=== PATIENT | male | born 1970 | race Caucasian/White ===

== ENCOUNTER 2017-06-29 15:45 | Emergency (ER) | payer OTHER ==
[2017-06-29] MEDS ORDERED: Cephalexin 500 MG Cap PO ONE (17:06)
[2017-06-29] MEDS ORDERED: Bacitracin Oint 1 GM U/D Packet TOP ONE (17:06)
[2017-06-29] MEDS ORDERED: Lidocaine 1% 30 ML SDV INJECT ONE (17:06)
--- NOTE | 2017-06-29 17:52 | EDM.PDOC ---
Scribed by Pam Pennington 06/29/17 [id number] for Handy Collier MD ED HPI GENERAL MEDICAL PROBLEM - General Chief Complaint: Laceration Stated Complaint: HAND CUT [id number] Time Seen by Provider: 06/29/17 17:01 Source of Information: Reports: Patient, RN, RN Notes Reviewed History Limitations: Reports: No Limitations - History of Present Illness INITIAL COMMENTS - FREE TEXT/NARRATIVE: Patient presents to ER with complaint of laceration to left forearm sustained when he fell into an old barbeque grill jaime. No other injuries. Tetanus vaccine is up to date. Onset: Today Location: Reports: Upper Extremity, Left Quality: Reports: Ache Severity: Moderate Improves with: Reports: None Worsens with: Reports: None Associated Symptoms: Reports: No Other Symptoms Left Arm Pain Score (Numeric/FACES): 3 - Related Data Allergies Allergy/AdvReac Type Severity Reaction Status Date / Time No Known Allergies Allergy Verified 06/29/17 16:41 Home Meds: Home Meds Rivaroxaban [Xarelto] 10 mg PO DAILY 06/29/17 [History] Past Medical History Respiratory History: Reports: PE Gastrointestinal History: Reports: Other (See Below) Other Gastrointestinal History: ulcerative colitis - Past Surgical History GI Surgical History: Reports: Hernia Repair/Other Male Surgical History: Reports: Vasectomy Social & Family History - Tobacco Use Smoking Status *Q: Never Smoker Second Hand Smoke Exposure: No - Caffeine Use Caffeine Use: Reports: Coffee, Soda - Recreational Drug Use Recreational Drug Use: No ED ROS GENERAL - Review of Systems Review Of Systems: ROS reveals no pertinent complaints other than HPI. ED EXAM, SKIN/RASH Exam: See Below Exam Limited By: No Limitations General Appearance: Alert, WD/WN, No Apparent Distress Head: Atraumatic, Normocephalic Neck: Normal Inspection, Supple, Non-Tender, Full Range of Motion Respiratory/Chest: No Respiratory Distress Extremities: Normal Range of Motion, Normal Capillary Refill, Other (2.5cm irregular laceration to the distal left ulnar forearm.). No: Joint Swelling Skin: Warm, Dry, Intact, Normal Color, No Rash ED SKIN PROCEDURES - Laceration/Wound Repair Left Medial Distal Arm Lac/Wound length In cm: 2.5 Appearance: Subcutaneous, Irregular, Clean Distal NVT: Neuro & Vascular Intact, No Tendon Injury Anesthetic Type: Local Local Anesthesia - Lidocaine (Xylocaine): 1% Plain Local Anesthetic Volume: Other (10cc) Skin Prep: Chlorhexidine (Hibiciens), Saline Saline Irrigation (cc's): 500 Exploration/Debridement/Repair: Wound Explored, In a Bloodless Field, Explored to Base, Minimal Debridement, Minimally Undermined Closed with: Sutures Suture Size: 3-0 # of Sutures: 8 Suture Type: Nylon, Interrupted Drain Placement: No Sterile Dressing Applied: Nurse Tetanus Status Addressed: Yes Complications: No Course - Vital Signs Last Recorded V/S: Last Vital Signs Temp 37.2 C 06/29/17 16:36 Pulse 96 06/29/17 16:36 Resp 16 06/29/17 16:36 BP 117/85 06/29/17 16:36 Pulse Ox 100 06/29/17 16:36 - Orders/Labs/Meds Meds: Medications Discontinued Medications Generic Name Dose Route Start Last Admin Trade Name Philippeq PRN Reason Stop Dose Admin Bacitracin 1 dose 06/29/17 17:06 06/29/17 17:29 Bacitracin Oint 1 Gm TOP 06/29/17 17:07 1 dose ONETIME ONE Administration Cephalexin 500 mg 06/29/17 17:06 06/29/17 17:22 Keflex PO 06/29/17 17:07 500 mg ONETIME ONE Administration Lidocaine HCl 30 ml 06/29/17 17:06 06/29/17 17:29 Xylocaine-Mpf 1% INJECT 06/29/17 17:07 30 ml ONETIME ONE Administration Departure - Departure Time of Disposition: 17:48 Disposition: Home, Self-Care 01 Condition: Good Clinical Impression: Laceration of left forearm Qualifiers: Encounter type: initial encounter Qualified Code(s): S51.812A - Laceration without foreign body of left forearm, initial encounter - Discharge Information Instructions: Laceration Care, Adult, [id number] Forms: ED Department Discharge Additional Instructions: Follow up in clinic in 7 to 10 days for suture removal. Return to ER if any signs of infection develop. I have read and agree with the documentation that has been completed regarding this visit. By signing this record, I attest that the documentation was completed in my physical presence and is an accurate record of the encounter.
== END 2017-06-29 18:01 | disposition home or self-care (01) ==
LOC: DL.ED 15:45
DX: S51.812A Laceration without foreign body of left forearm, initial encounter (principal); W01.198A Fall on same level from slipping, tripping and stumbling with subsequent striking against other object, initial encounter; Z79.899 Other long term (current) drug therapy
CPT/HCPCS: 12001; 99282; A9270; 12011

== ENCOUNTER 2020-03-11 02:26 | Emergency (ER) | payer OTHER ==
--- NOTE | 2020-03-11 02:43 | EDM.PDOC ---
ED HPI GENERAL MEDICAL PROBLEM - General Stated Complaint: BROKEN BIG TOE Time Seen by Provider: 03/11/20 02:28 Source of Information: Reports: Patient History Limitations: Reports: No Limitations - History of Present Illness INITIAL COMMENTS - FREE TEXT/NARRATIVE: ED with c/o pain to right great toe, Getting up to bathroom, leg asleep and stubbed toe against wall, approximately 1:30 tonight. [place] pop. Nail bleeding Right Toe-[place] Pain Score (Numeric/FACES): 2 - Related Data Allergies Allergy/AdvReac Type Severity Reaction Status Date / Time No Known Allergies Allergy Verified 03/11/20 02:35 Home Meds: Home Meds Rivaroxaban [Xarelto] 10 mg PO DAILY 06/29/17 [History] Past Medical History Respiratory History: Reports: PE Gastrointestinal History: Reports: Other (See Below) Other Gastrointestinal History: ulcerative colitis - Past Surgical History GI Surgical History: Reports: Hernia Repair/Other Male Surgical History: Reports: Vasectomy Social & Family History - Caffeine Use Caffeine Use: Reports: Coffee, Soda Review of Systems - Review of Systems Review Of Systems: Comprehensive ROS is negative, except as noted in HPI. ED EXAM, GENERAL - Physical Exam Exam: See Below Exam Limited By: No Limitations General Appearance: Alert, Moderate Distress Eye Exam: Bilateral Eye: EOMI Ears: Normal External Exam, Hearing Grossly Normal Nose: Normal Inspection Throat/Mouth: Normal Inspection Head: Atraumatic, Normocephalic Neck: Full Range of Motion Respiratory/Chest: No Respiratory Distress, Normal Breath Sounds Cardiovascular: Normal Peripheral Pulses, Regular Rate, Rhythm Extremities: Other (mild swelling right great toe, no gross deformity subungal hematoma) Neurological: Alert, Oriented, Normal Cognition, No Motor/Sensory Deficits Psychiatric: Normal Affect ED TRAUMA EXTREMITY PROCEDURES - Splinting Right Lower Extremity Pre-Procedure NV Status: Normal Post-Procedure NV Status: Normal Splint Material: Boot Orthotic Applied & Form Fitted By: Nurse Provider Post-Splint Application NV Check: NV Status Normal Complications: No - Additional/Other Procedure(s) Other (Free Text) Procedure(s): subungual hematoma reight great toe, , cleansed with betadine, drainage with fine point cautery lower medial nail. Toerated well, pressure applied, bandaide dressing Course - Vital Signs Last Recorded V/S: Last Vital Signs Temp 97.2 F 03/11/20 02:32 Pulse 82 03/11/20 02:32 Resp 17 03/11/20 02:32 BP 140/85 03/11/20 02:32 Pulse Ox 100 03/11/20 02:32 - Orders/Labs/Meds Orders: Active Orders 24 hr Category Date Time Status Toes Great Toe Rt T5 [CR] Urgent Exams 03/11/20 02:30 Taken Departure - Departure Time of Disposition: 03:02 Disposition: Home, Self-Care 01 Clinical Impression: "Subungual hematoma, foot " Toe fracture, right Qualifiers: Encounter type: initial encounter Toe: great toe Fracture type: closed Phalanx: proximal Fracture alignment: nondisplaced Qualified Code(s): S92.414A - Nondisplaced fracture of proximal phalanx of right great toe, initial encounter for closed fracture - Discharge Information *PRESCRIPTION DRUG MONITORING PROGRAM REVIEWED*: No *COPY OF PRESCRIPTION DRUG MONITORING REPORT IN PATIENT TRAVIS: No Instructions: Toe Fracture, [id number] Additional Instructions: Follow up with podiatry or ortho walking boot when up keep elevated, ice tyleol 650mg every 4 hours as needed for mild discomfort tramadol 50mg one every 6 hours as needed for severe discomfort Sepsis Event Note (ED) - Focused Exam Vital Signs: Vital Signs Temp Pulse Resp BP Pulse Ox 03/11/20 02:32 97.2 F 82 17 140/85 100 - My Orders Last 24 Hours: My Active Orders 03/11/20 02:30 Toes Great Toe Rt T5 [CR] Urgent - Assessment/Plan Last 24 Hours: My Active Orders 03/11/20 02:30 Toes Great Toe Rt T5 [CR] Urgent
--- NOTE | 2020-03-11 03:21 | CR ---
PROCEDURE INFORMATION: Exam: XR Right Toe(s) Exam date and time: 03/11/2020 2:40 AM Age: 49 years old Clinical indication: Other: Pain big toe; Additional info: Stubbed toe on wall TECHNIQUE: Imaging protocol: XR Right toes. Views: Minimum 2 views. COMPARISON: No relevant prior studies available. FINDINGS: Bones/joints: Acute fracture at the medial base of the proximal phalanx of the 1st digit at the 1st MTP joint. Soft tissues: There is soft tissue swelling medially overlying the 1st MTP joint.. IMPRESSION: Acute fracture at the medial base proximal phalanx 1st digit at the 1st MTP joint with overlying soft tissue swelling.
== END 2020-03-11 03:30 | disposition home or self-care (01) ==
LOC: DL.ED 02:26
DX: S92.414A Nondisplaced fracture of proximal phalanx of right great toe, initial encounter for closed fracture (principal); S90.211A Contusion of right great toe with damage to nail, initial encounter; Z86.711 Personal history of pulmonary embolism; Z79.01 Long term (current) use of anticoagulants; W22.8XXA Striking against or struck by other objects, initial encounter
CPT/HCPCS: 11740; 73660-T5; 99283; 99283-25

== ENCOUNTER 2020-11-21 14:50 | Emergency (ER) | payer BC, OTHER ==
[2020-11-21] MEDS ORDERED: Sodium Chloride 0.9% 10 ML Syringe FLUSH PRN (15:36)
--- NOTE | 2020-11-21 15:44 | EDM.PDOC ---
<True Herring M - Last Filed: 11/21/20 17:27> ED HPI GENERAL MEDICAL PROBLEM - General Chief Complaint: Flank Pain Stated Complaint: kidney stones Time Seen by Provider: 11/21/20 15:30 - Related Data Allergies Allergy/AdvReac Type Severity Reaction Status Date / Time No Known Allergies Allergy Verified 11/21/20 15:07 Home Meds: Home Meds Rivaroxaban [Xarelto] 10 mg PO DAILY 06/29/17 [History] Course - Radiology Interpretation Free Text/Narrative:: [facility] Final Radiology Report Call: [phone] assistance Online chat: [email or web address] Name: LALA MCFADDEN Age: 50Years M Date: 11/21/2020 SSN: -- : [id number] Study: CT ABDOMEN PELVIS WO CONT Requesting Physician: Deniz Lomeli Images: [id number] Addl Studies: Provided Clinical History: back pn, difficulty urinating, Right and Left flank pain with dysuria Contrast: Without Contrast Medium: Contrast Amount: Contrast Method: Page 1 of 2 PROCEDURE INFORMATION: Exam: CT Abdomen And Pelvis Without Contrast Exam date and time: 11/21/2020 4:20 PM Age: 50 years old Clinical indication: Abdominal pain; Other: Bilateral flank pain; Prior surgery; Surgery date: <1 month; Surgery type: Colectomy 10/25/20; Additional info: Back pn, difficulty urinating, right and left flank pain with dysuria TECHNIQUE: Imaging protocol: Computed tomography of the abdomen and pelvis without contrast. Radiation optimization: All CT scans at this facility use at least one of these dose optimization techniques: automated exposure control; mA and/or kV adjustment per patient size (includes targeted exams where dose is matched to clinical indication); or iterative r econstruction. COMPARISON: No relevant prior studies available. FINDINGS: Liver: Normal. No mass. Gallbladder and bile ducts: Normal. No calcified stones. No ductal dilation. Pancreas: Normal. No ductal dilation. Spleen: Normal. No splenomegaly. Adrenal glands: Normal. No mass. Kidneys and ureters: Punctate calculi in both kidneys. Kidneys are free of hydronephrosis. There is mild hydroureter in distal left ureter with 2 mm calculus in left UVJ region. Stomach and bowel: Bowel gas pattern nonobstructive with total colectomy noted. Diverting ileostomy right mid abdomen. There are prominent areas of fat stranding throughout the rectosigmoid stump remnant. No significant free fluid. No free intraperitoneal air. Appendix: No evidence of appendicitis. Intraperitoneal space: See "Stomach and bowel" finding. LALA MCFADDEN | Final Radiology Report CONFIDENTIALITY STATEMENT This report is intended only for use by the referring physician, and only in accordance with law. If you received this in error, call [phone]. Page 2 of 2 Vasculature: Unremarkable. No abdominal aortic aneurysm. Lymph nodes: Unremarkable. No enlarged lymph nodes. Urinary bladder: Unremarkable as visualized. Reproductive: Unremarkable as visualized. Bones/joints: Unremarkable. No acute fracture. Soft tissues: Unremarkable. IMPRESSION: 1. Bilateral nephrolithiasis with mild left hydroureter presumably due to 2 mm calculus in left UVJ region 2. Total colectomy changes. Nonspecific inflammatory changes versus scarring adjacent to site of distal colonic stump remnant. Thank you for allowing us to participate in the care of your patient. Dictated and Authenticated by: Dejuan Hinson MD 11/21/2020 5:23 PM Central Time ([place] & [place]) Departure - Departure Disposition: Home, Self-Care 01 Clinical Impression: Kidney stones - Discharge Information Instructions: Kidney Stones, [id number] Forms: ED Department Discharge Additional Instructions: RX: Flomax RX: Toradol Follow up with your primary care facility at the end of this week or early next week. If you pass a kidney stone collect it and take it to your provider for analysis. If any new symptoms or concerns develop contact your primary care facility or return to the ER. <Deniz Lomeli - Last Filed: 11/21/20 17:43> ED HPI GENERAL MEDICAL PROBLEM - General Source of Information: Reports: Patient History Limitations: Reports: No Limitations - History of Present Illness INITIAL COMMENTS - FREE TEXT/NARRATIVE: 50 y/o M c/o difficulty urinating for 2 -3 days. Pt states he has trouble starting a stream and some discomfort with urination. Denies blood in urine. also c/o associated L side pain lasting a few hours today. Pt states he has also had R lower back pn 3/10 sharp non radiating. No associated nausea,, fever, chills. Denies abd pn, cp, db, pelvic pn. Hx of ulcerative colitis and had his entire colon removed sept 2 at [facility]. Pt now has a ileostomy which has been functioning normally. Location: Reports: Back Severity: Mild Flank Pain Score (Numeric/FACES): 4 Past Medical History Respiratory History: Reports: PE Gastrointestinal History: Reports: Other (See Below) Other Gastrointestinal History: ulcerative colitis - Infectious Disease History Infectious Disease History: Reports: C-Difficile - Past Surgical History GI Surgical History: Reports: Hernia Repair/Other Male Surgical History: Reports: Vasectomy Social & Family History - Family History Family Medical History: No Pertinent Family History - Tobacco Use Tobacco Use Status *Q: Never Tobacco User - Caffeine Use Caffeine Use: Reports: Coffee, Energy Drinks - Recreational Drug Use Recreational Drug Use: No ED ROS GENERAL - Review of Systems Review Of Systems: Comprehensive ROS is negative, except as noted in HPI. ED EXAM, RENAL/ - Physical Exam Exam: See Below Exam Limited By: No Limitations General Appearance: Alert, No Apparent Distress Throat/Mouth: Normal Inspection, Normal Lips, Normal Teeth, Normal Gums, Normal Oropharynx, Normal Voice, No Airway Compromise Head: Atraumatic, Normocephalic Neck: Normal Inspection, Supple, Non-Tender, Full Range of Motion Respiratory/Chest: No Respiratory Distress, Lungs Clear, Normal Breath Sounds, No Accessory Muscle Use, Chest Non-Tender Cardiovascular: Normal Peripheral Pulses, Regular Rate, Rhythm, No Edema, No Gallop, No JVD, No Murmur, No Rub GI/Abdominal: Soft, Non-Tender (Male) Exam: Deferred Rectal (Males) Exam: Deferred Back Exam: CVA Tenderness (L), CVA Tenderness (R) Extremities: Normal Inspection, Normal Range of Motion, Non-Tender, Normal Capillary Refill, No Pedal Edema Neurological: Alert, Oriented, CN II-XII Intact, Normal Cognition, Normal Gait, Normal Reflexes, No Motor/Sensory Deficits Psychiatric: Normal Affect, Normal Mood Skin Exam: Warm, Dry, Intact Course - Vital Signs Last Recorded V/S: Last Vital Signs Temp 98.1 F 11/21/20 15:03 Pulse 108 H 11/21/20 15:03 Resp 20 11/21/20 15:03 BP 149/98 H 11/21/20 15:03 Pulse Ox 97 11/21/20 15:03 - Orders/Labs/Meds Orders: Active Orders 24 hr Category Date Time Status Peripheral IV Care [RC] . DIRECTED Care 11/21/20 15:37 Active Sodium Chloride 0.9% [Saline Flush] Med 11/21/20 15:36 Active 10 ml FLUSH ASDIRECTED PRN Peripheral IV Insertion Adult [OM.PC] Routine Oth 11/21/20 15:36 Ordered Medication Orders Sodium Chloride (Sodium Chloride 0.9% 10 Ml Syringe) 10 ml FLUSH ASDIRECTED PRN PRN Reason: Keep Vein Open Labs: Laboratory Tests 11/21/20 11/21/20 11/21/20 Range/Units 15:10 15:46 15:46 WBC 13.4 H (5.0-10.0) 10^3/uL RBC 4.25 L (4.6-6.2) 10^6/uL Hgb 11.2 L (14.0-18.0) g/dL Hct 37.4 L (40.0-54.0) % MCV 88.0 (80-100) fL MCH 26.4 L (27.0-34.0) pg MCHC 29.9 L (33.0-35.0) g/dL Plt Count 327 (150-450) 10^3/uL Neut % (Auto) 74.7 (42.2-75.2) % Lymph % (Auto) 15.9 L (20.5-50.1) % [place] % (Auto) 7.9 (2-8) % Eos % (Auto) 1.1 (1.0-3.0) % Baso % (Auto) 0.4 (0.0-1.0) % Sodium 141 (136-145) mmol/L Potassium 4.1 (3.5-5.1) mmol/L Chloride 105 (98-107) mmol/L Carbon Dioxide 29 (21-32) mmol/L Anion Gap 11.1 (7-13) mEq/L BUN 16 (7-18) mg/dL Creatinine 0.99 (0.70-1.30) mg/dL Est Cr Clr Drug Dosing 106.09 mL/min Estimated GFR (MDRD) > 60 BUN/Creatinine Ratio 16.2 (No establ ref range) Glucose 90 (70-99) mg/dL Lactic Acid (0.4-2.0) mmol/L Calcium 8.5 (8.5-10.1) mg/dL Magnesium 2.0 (1.8-2.4) mg/dL Total Bilirubin 0.4 (0.2-1.0) mg/dL AST 25 (15-37) U/L ALT 88 H (16-63) U/L Alkaline Phosphatase 88 (46-116) U/L C-Reactive Protein 1.2 H (0.0-0.9) mg/dL Total Protein 6.4 (6.4-8.2) g/dL Albumin 3.2 L (3.4-5.0) g/dL Globulin 3.2 Albumin/Globulin Ratio 1.00 Amylase 76 (25-115) U/L Lipase 363 (73-393) U/L Urine Color Yellow (YELLOW) Urine Appearance Slightly cloudy (CLEAR) Urine pH 5.5 (5.0-9.0) Ur Specific [place] >= 1.030 (1.005-1.030) Urine Protein Negative (NEGATIVE) Urine Glucose (UA) Negative (NEGATIVE) Urine Ketones Negative (NEGATIVE) Urine Occult Blood Large H (NEGATIVE) Urine Nitrite Negative (NEGATIVE) Urine Bilirubin Negative (NEGATIVE) Urine Urobilinogen 0.2 (0.2-1.0) mg/dL Ur Leukocyte Esterase Negative (NEGATIVE) Urine RBC >100 H (0-5) /HPF Urine WBC 0-5 (0-5/HPF) /HPF Ur Epithelial Cells Rare (NOT SEEN) /HPF Amorphous Sediment Rare (NOT SEEN) /HPF Urine Bacteria Rare (0-FEW/HPF) /HPF Urine Mucus Few H (NOT SEEN) /LPF 11/21/20 Range/Units 15:46 WBC (5.0-10.0) 10^3/uL RBC (4.6-6.2) 10^6/uL Hgb (14.0-18.0) g/dL Hct (40.0-54.0) % MCV (80-100) fL MCH (27.0-34.0) pg MCHC (33.0-35.0) g/dL Plt Count (150-450) 10^3/uL Neut % (Auto) (42.2-75.2) % Lymph % (Auto) (20.5-50.1) % [place] % (Auto) (2-8) % Eos % (Auto) (1.0-3.0) % Baso % (Auto) (0.0-1.0) % Sodium (136-145) mmol/L Potassium (3.5-5.1) mmol/L Chloride (98-107) mmol/L Carbon Dioxide (21-32) mmol/L Anion Gap (7-13) mEq/L BUN (7-18) mg/dL Creatinine (0.70-1.30) mg/dL Est Cr Clr Drug Dosing mL/min Estimated GFR (MDRD) BUN/Creatinine Ratio (No establ ref range) Glucose (70-99) mg/dL Lactic Acid 1.1 (0.4-2.0) mmol/L Calcium (8.5-10.1) mg/dL Magnesium (1.8-2.4) mg/dL Total Bilirubin (0.2-1.0) mg/dL AST (15-37) U/L ALT (16-63) U/L Alkaline Phosphatase (46-116) U/L C-Reactive Protein (0.0-0.9) mg/dL Total Protein (6.4-8.2) g/dL Albumin (3.4-5.0) g/dL Globulin Albumin/Globulin Ratio Amylase (25-115) U/L Lipase (73-393) U/L Urine Color (YELLOW) Urine Appearance (CLEAR) Urine pH (5.0-9.0) Ur Specific [place] (1.005-1.030) Urine Protein (NEGATIVE) Urine Glucose (UA) (NEGATIVE) Urine Ketones (NEGATIVE) Urine Occult Blood (NEGATIVE) Urine Nitrite (NEGATIVE) Urine Bilirubin (NEGATIVE) Urine Urobilinogen (0.2-1.0) mg/dL Ur Leukocyte Esterase (NEGATIVE) Urine RBC (0-5) /HPF Urine WBC (0-5/HPF) /HPF Ur Epithelial Cells (NOT SEEN) /HPF Amorphous Sediment (NOT SEEN) /HPF Urine Bacteria (0-FEW/HPF) /HPF Urine Mucus (NOT SEEN) /LPF Meds: Medications Generic Name Dose Route Start Last Admin Trade Name Freq PRN Reason Stop Dose Admin Sodium Chloride 10 ml 11/21/20 15:36 Sodium Chloride 0.9% 10 Ml Syringe FLUSH ASDIRECTED PRN Keep Vein Open Discontinued Medications Generic Name Dose Route Start Last Admin Trade Name Mikala PRN Reason Stop Dose Admin Ketorolac Tromethamine 30 mg 11/21/20 17:37 Ketorolac 30 Mg/Ml Sdv IVPUSH 11/21/20 17:38 ONETIME ONE Tamsulosin HCl 0.4 mg 11/21/20 17:37 Tamsulosin 0.4 Mg Cap.Er PO 11/21/20 17:38 ONETIME ONE - Re-Assessments/Exams Free Text/Narrative Re-Assessment/Exam: 11/21/20 17:39 I discussed the lab, exam and ct results with pt. He understands he has 2 kidney stones. I will prescribe flomax and toradol. Departure - Departure Time of Disposition: 17:41 - Discharge Information *PRESCRIPTION DRUG MONITORING PROGRAM REVIEWED*: Not Applicable *COPY OF PRESCRIPTION DRUG MONITORING REPORT IN PATIENT TRAVIS: Not Applicable Sepsis Event Note (ED) - Evaluation Sepsis Screening Result: No Definite Risk - Focused Exam Vital Signs: Vital Signs Temp Pulse Resp BP Pulse Ox 11/21/20 15:03 98.1 F 108 H 20 149/98 H 97 - My Orders Last 24 Hours: My Active Orders 11/21/20 15:36 Sodium Chloride 0.9% [Saline Flush] 10 ml FLUSH ASDIRECTED PRN Peripheral IV Insertion Adult [OM.PC] Routine 11/21/20 15:37 Peripheral IV Care [RC] . DIRECTED - Assessment/Plan Last 24 Hours: My Active Orders 11/21/20 15:36 Sodium Chloride 0.9% [Saline Flush] 10 ml FLUSH ASDIRECTED PRN Peripheral IV Insertion Adult [OM.PC] Routine 11/21/20 15:37 Peripheral IV Care [RC] . DIRECTED
[2020-11-21 16:13] LABS: ANION GAP 11.1 mEq/L (7-13); CHLORIDE,CL 105 mmol/L (98-107); SODIUM,NA 141 mmol/L (136-145)
--- NOTE | 2020-11-21 17:23 | CT ---
PROCEDURE INFORMATION: Exam: CT Abdomen And Pelvis Without Contrast Exam date and time: 11/21/2020 4:20 PM Age: 50 years old Clinical indication: Abdominal pain; Other: Bilateral flank pain; Prior surgery; Surgery date: <1 month; Surgery type: Colectomy 10/25/20; Additional info: Back pn, difficulty urinating, right and left flank pain with dysuria TECHNIQUE: Imaging protocol: Computed tomography of the abdomen and pelvis without contrast. Radiation optimization: All CT scans at this facility use at least one of these dose optimization techniques: automated exposure control; mA and/or kV adjustment per patient size (includes targeted exams where dose is matched to clinical indication); or iterative reconstruction. COMPARISON: No relevant prior studies available. FINDINGS: Liver: Normal. No mass. Gallbladder and bile ducts: Normal. No calcified stones. No ductal dilation. Pancreas: Normal. No ductal dilation. Spleen: Normal. No splenomegaly. Adrenal glands: Normal. No mass. Kidneys and ureters: Punctate calculi in both kidneys. Kidneys are free of hydronephrosis. There is mild hydroureter in distal left ureter with 2 mm calculus in left UVJ region. Stomach and bowel: Bowel gas pattern nonobstructive with total colectomy noted. Diverting ileostomy right mid abdomen. There are prominent areas of fat stranding throughout the rectosigmoid stump remnant. No significant free fluid. No free intraperitoneal air. Appendix: No evidence of appendicitis. Intraperitoneal space: See "Stomach and bowel" finding. Vasculature: Unremarkable. No abdominal aortic aneurysm. Lymph nodes: Unremarkable. No enlarged lymph nodes. Urinary bladder: Unremarkable as visualized. Reproductive: Unremarkable as visualized. Bones/joints: Unremarkable. No acute fracture. Soft tissues: Unremarkable. IMPRESSION: 1. Bilateral nephrolithiasis with mild left hydroureter presumably due to 2 mm calculus in left UVJ region 2. Total colectomy changes. Nonspecific inflammatory changes versus scarring adjacent to site of distal colonic stump remnant.
[2020-11-21] MEDS ORDERED: Ketorolac 30 MG/ML SDV IVPUSH ONE (17:37)
[2020-11-21] MEDS ORDERED: Tamsulosin 0.4 MG Cap.ER PO ONE (17:37)
[2020-11-21] MEDS ORDERED: Ketorolac 30 MG/ML SDV IM ONE (17:39)
[2020-11-21] MEDS ORDERED: Rivaroxaban 10 MG Tab PO ONE (17:57)
== END 2020-11-21 18:13 | disposition home or self-care (01) ==
LOC: DL.ED 14:50
DX: N20.0 Calculus of kidney (principal); Z79.01 Long term (current) use of anticoagulants
CPT/HCPCS: 36415; 74176; 80053; 81001; 82150; 83605; 83690; 83735; 85025; 86140; 96372; 99284; A9270; J1885